=== PATIENT | male | born 1970 ===

== ENCOUNTER 2018-05-24 08:12 | Emergency (ER) | payer OTHER ==
[~2018-05-24] VITALS: Ht 177.8 cm; Wt 933.5 kg
[2018-05-24] MEDS ORDERED: TUSSIONEX PENN115 ML PO (10:13)
[2018-05-24] MEDS ORDERED: ZITHROMAX500 MG PO (10:13)
== END 2018-05-24 10:24 | disposition home or self-care (01) ==
LOC: ER 08:12
DX: J40 Bronchitis, not specified as acute or chronic (principal)